=== PATIENT | male | born 1970 | race Caucasian/White ===

== ENCOUNTER 2021-12-17 20:42 | Emergency (ER) | payer SELFPAY ==
[~2021-12-17] VITALS: Ht 185.4 cm; Wt 77.1 kg
[2021-12-17 20:42] VITALS: BP 152/88
--- NOTE | 2021-12-17 20:42 | NUR ---
patient in [facility] with [place] [facility]
--- NOTE | 2021-12-17 20:50 | NUR ---
ERMD to examine patient
[2021-12-17] MEDS ORDERED: LIDOCAINE 5% 1 EA PATCH TP SCH (20:55)
[2021-12-17] MEDS ORDERED: ACETAMINOPHEN EXTRA STRENGTH 500 MG TAB PO ONE (20:55)
--- NOTE | 2021-12-17 21:00 | NUR ---
patient to XR via W/c
[2021-12-17] MEDS ORDERED: IBUP-2213 PO (21:30)
[2021-12-17 21:37] VITALS: BP 152/88
--- NOTE | 2021-12-17 21:37 | NUR ---
Patient discharged with v/s stable. Written and verbal after care instructions given and explained. Patient alert, oriented and verbalized understanding of instructions. Discharged by Jennifer TERESA in custody. All questions addressed prior to discharge. ID band removed. Patient advised to follow up with PMD. Rx of ibuprofen given. Patient educated on indication of medication including possible reaction and side effects. Opportunity to ask questions provided and answered.
== END 2021-12-17 21:37 ==
LOC: MED 20:42
DX: S20.211A Contusion of right front wall of thorax, initial encounter (principal); Z02.9 Encounter for administrative examinations, unspecified; Z79.1 Long term (current) use of non-steroidal anti-inflammatories (NSAID); Z88.8 Allergy status to other drugs, medicaments and biological substances; X58.XXXA Exposure to other specified factors, initial encounter; Y92.89 Other specified places as the place of occurrence of the external cause; Y93.89 Activity, other specified; Y99.8 Other external cause status
CPT/HCPCS: 71101; 99283